=== PATIENT | female | born 2000 | race Caucasian/White ===

== ENCOUNTER 2022-03-04 10:17 | Emergency (ER) | payer OTHER, SELFPAY ==
[2022-03-04 10:39] VITALS: BP 110/64; PULSE 83; RESP 18; TEMP 36.6; O2SAT 98
--- NOTE | 2022-03-04 10:41 | ED.GENADULT ---
HPI - General Adult General Chief complaint: Upper Respiratory Infection Stated complaint: sorethroat History of Present Illness HPI narrative: 21-year-old female. Presents to [facility] this morning with acute complaints of sore throat, body aches, chills, diarrhea. Manifestations present for the past 24 hours. She reports a positive streptococcal sore throat exposure at home. No fever. No dysphagia, involuntary drooling. Nasal congestion, w/o cough, dyspnea, palpitations, chest pain. Infrequent bouts of loose stool, without abdominal pain, urinary concerns, bloody stool. No additional acute c/o upon PE. Related Data Allergies Allergy/AdvReac Type Severity Reaction Status Date / Time amoxicillin Allergy Unknown Rash Verified 03/04/22 10:43 Review of Systems Review of Systems: ROS: Positive for nasal congestion. Positive for sore throat. Positive for body aches. Positive for loose stool. No headache dizziness. No dyspnea dysphagia. No abdominal pain, nausea, vomiting, or bloody stool. Remainder of ROS is negative unless otherwise noted. Eyes: Comments: teo. Exam Narrative: GENERAL: This is a well-nourished, well-developed adult, in no apparent distress. HEAD: normocephalic, atraumatic. EYES: PERRL. Sclera clear/white. EARS: External ears normal, auditory canals clear and without drainage, TMs normal. NOSE: External nose normal. Positive Rhinorrhea, no obstruction, nares patent. THROAT: Mucous membranes moist, posterior pharynx is erythematous, mild exudative changes. No swelling, palate soft. NECK: Neck supple, non-tender without lymphadenopathy, masses or thyromegaly. No meningeal findings. CARDIOVASCULAR: Regular rate and rhythm without murmurs, gallops, or rubs. RESPIRATORY: Clear to auscultation. Breath sounds equal bilaterally. No wheezes, rales, or rhonchi. GASTROINTESTINAL: Abdomen soft, non-tender. SKIN: warm, intact with no suspicious lesions or rash. NEURO: Alert, active, and age appropriate. No focal neurologic deficits. EXTREMITIES: Negative. Course Course Emergency Course: Level of Care: Express Care Visit Vital Signs Vital signs: Vital Signs Temperature 36.6 C 03/04/22 10:39 Pulse Rate 83 03/04/22 10:39 Respiratory Rate 18 03/04/22 10:39 Blood Pressure 110/64 03/04/22 10:39 Pulse Oximetry 98 03/04/22 10:39 Oxygen Delivery Room Air 03/04/22 10:39 Temperature 36.6 C 03/04/22 10:39 Pulse Rate 83 03/04/22 10:39 Respiratory Rate 18 03/04/22 10:39 Blood Pressure 110/64 03/04/22 10:39 Pulse Oximetry 98 03/04/22 10:39 Oxygen Delivery Room Air 03/04/22 10:39 Medical Decision Making MDM Narrative Medical decision making narrative: Afebrile, non-tachycardic, appears non-toxic. No hypoxemia, no respiratory distress. SARS Covid: negative. Rapid Strep:negative. Considering PE findings, in addition to recent streptococcal sore throat exposure, will cover this client with the Z-pack (PCN allergy). Resume home OTC remedies prn. PCP F/U 1 WK. ER W/Emergent status changes. Pt agrees. Differential Diagnosis Differential Diagnosis: Differential diagnosis: consideration of the following conditions may be warranted for the presenting problem, they are not final diagnoses: Upper respiratory infection, pharyngitis, streptococcal sore throat, sinusitis, otitis media, Sars Covid, and or other. Vital Signs Vital Signs: Vital Signs Temperature 36.6 C 03/04/22 10:39 Pulse Rate 83 03/04/22 10:39 Respiratory Rate 18 03/04/22 10:39 Blood Pressure 110/64 03/04/22 10:39 Pulse Oximetry 98 03/04/22 10:39 Oxygen Delivery Room Air 03/04/22 10:39 Temperature 36.6 C 03/04/22 10:39 Pulse Rate 83 03/04/22 10:39 Respiratory Rate 18 03/04/22 10:39 Blood Pressure 110/64 03/04/22 10:39 Pulse Oximetry 98 03/04/22 10:39 Oxygen Delivery Room Air 03/04/22 10:39 Lab [facility]
== END 2022-03-04 11:02 | disposition home or self-care (01) ==
PROVIDERS: Emergency Provider Nurse Practitioner Adult Health
DX: J02.9 Acute pharyngitis, unspecified (principal); Z20.822 Contact with and (suspected) exposure to COVID-19
CPT/HCPCS: 87081; 87426; 87880; 99213; C9803; G0463

== ENCOUNTER 2022-08-13 16:24 | Emergency (ER) | payer OTHER, SELFPAY ==
[2022-08-13 16:32] VITALS: BP 115/65; PULSE 88; RESP 16; TEMP 36.7; O2SAT 98
[2022-08-13 16:36] VITALS: BP 115/65; PULSE 88; RESP 16; TEMP 36.7; O2SAT 98
--- NOTE | 2022-08-13 16:37 | ED.URI ---
HPI - URI/Sore Throat General Chief Complaint: Upper Respiratory Infection Stated Complaint: sorethroat,bilateral ear pain Time Seen by Provider: 08/13/22 16:37 Source: patient Mode of arrival: ambulatory Limitations: no limitations History of Present Illness HPI Narrative: 22-year-old female presents with complaint of sore throat, bilateral ear pain, postnasal drainage and nasal congestion for 2 days. Afebrile. No cough. Is not taking any [id number] medications to treat her symptoms. 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 Denies nausea vomiting diarrhea. All systems reviewed and negative except as noted above. Related Data Allergies Allergy/AdvReac Type Severity Reaction Status Date / Time amoxicillin Allergy Unknown Rash Verified 08/13/22 16:35 Review of Systems Review of Systems: CONSTITUTIONAL: Denies fever, chills, or sweats. EYES: Denies visual changes, redness, or discharge. ENT: Reports rhinorrhea, congestion, sore throat, bilateral ear pain CARDIOVASCULAR: Denies chest pain, palpitations, or edema. RESPIRATORY: Denies cough or dyspnea. GASTROINTESTINAL: Denies abdominal pain, nausea, vomiting, or diarrhea. GENITOURINARY: Denies dysuria or hematuria. SKIN: Denies rash or itching. MUSCULOSKELETAL: Denies back pain, joint pain, or myalgia. NEUROLOGIC: Denies headache, numbness, or weakness. PSYCHIATRIC: Denies anxiety or depression. All other systems reviewed are negative, except as documented in HPI. PMFSH Comments At time of signature, agree with nursing past medical, surgical, social and family history. There is no relevant family history pertinent to the presenting complaint. Exam Narrative: GENERAL: This is a well-nourished, well-developed patient, in no apparent distress. HEAD: normocephalic, atraumatic. EYES: PERRL. Sclera clear/white. Vision is grossly intact. EARS: External ears normal, auditory canals clear and without drainage, TMs normal without perforation. Hearing grossly intact. NOSE: External nose normal with clear nasal drainage, no erythema or swelling. no sinus tenderness. THROAT: Mucous membranes moist, Moderate amount clear Postnasal drainage. NECK: Neck supple, non-tender without lymphadenopathy, masses or thyromegaly. CARDIOVASCULAR: Regular rate and rhythm without murmurs, gallops, or rubs. RESPIRATORY: Clear to auscultation. Breath sounds equal bilaterally. No wheezes, rales, or rhonchi. SKIN: warm, Dry, intact with no suspicious lesions or rash, good texture and turgor. NEURO: awake, alert, and oriented to person, place and time. There were no obvious focal neurologic abnormalities. EXTREMITIES: No joint tenderness, effusion, or edema noted. Course Course Level of Care: Express Care Visit Vital Signs Vital signs: Vital Signs Temperature 36.7 C 08/13/22 16:32 Pulse Rate 88 08/13/22 16:32 Respiratory Rate 16 08/13/22 16:32 Blood Pressure 115/65 08/13/22 16:32 Pulse Oximetry 98 08/13/22 16:32 Oxygen Delivery Room Air 08/13/22 16:32 Temperature 36.7 C 08/13/22 16:36 Pulse Rate 88 08/13/22 16:36 Respiratory Rate 16 08/13/22 16:36 Blood Pressure 115/65 08/13/22 16:36 Pulse Oximetry 98 08/13/22 16:36 Oxygen Delivery Room Air 08/13/22 16:36 Reviewed MDM - URI/Sore Throat MDM Narrative Medical decision making narrative: Patient is aware of diagnosis, understands and agrees to treatment plan. Anticipatory guidance given. Patient agrees to follow-up as directed and is aware of reasons to seek care at the emergency department. Portions of this record may have been created with voice recognition software Differential Diagnosis Differential diagnosis: Likely sinusitis Lab Data Labs: Lab Results 08/13/22 Range/Units 16:39 POC SARS CoV-2 Ag Negative (Negative) Strep Screen Presumptive Negative
== END 2022-08-13 17:23 | disposition home or self-care (01) ==
PROVIDERS: Emergency Provider Nurse Practitioner Family; PCP Pediatrics
DX: J01.90 Acute sinusitis, unspecified (principal); Z20.822 Contact with and (suspected) exposure to COVID-19
CPT/HCPCS: 87081; 87426; 87880; 99213; C9803; G0463

== ENCOUNTER 2023-03-17 08:35 | Emergency (ER) | payer OTHER, SELFPAY ==
[2023-03-17 08:51] VITALS: BP 106/59; PULSE 79; RESP 18; TEMP 36.5; O2SAT 99
--- NOTE | 2023-03-17 09:22 | ED.URI ---
HPI - URI/Sore Throat General Chief Complaint: Upper Respiratory Infection Stated Complaint: sorethroat Time Seen by Provider: 03/17/23 08:55 Source: patient Mode of arrival: ambulatory Limitations: no limitations History of Present Illness HPI Narrative: Denae is a 22-year-old female patient presenting to the clinic today with complaints of a sore throat x2 days. She reports she has also had some slight nasal congestion and nonproductive cough. No known fever or chills. No known exposure to anyone with COVID, flu, or strep. MD elicited complaint: sore throat and nasal congestion Related Data Home Medications Medication Instructions Recorded Confirmed No Home Medications 03/17/23 03/17/23 Allergies Allergy/AdvReac Type Severity Reaction Status Date / Time amoxicillin AdvReac Mild Rash Verified 03/17/23 09:04 Review of Systems Review of Systems: Pertinent positives per HPI. Patient denies any fever, chills, rash, headache, visual changes, dizziness, shortness of breath, chest pain, palpitations, nausea, vomiting, diarrhea, constipation, abdominal pain, or any urinary issues. PMFSH Comments At the time of my signature, I reviewed and agree with the nursing past medical, surgical, social, and family history. There is no relevant family history pertinent to the patient complaint. Exam Narrative: General: Well-developed, well nourished, in no apparent distress Head: Normocephalic, atraumatic Eyes: Pupils equally round and reactive to light bilaterally, EOM intact, sclera and conjunctive clear, no discharge, lids normal Ears: TMs intact and congested, ear canals clear, no drainage, grossly hearing normal. Nose: Nares patent, clear nasal discharge, no inflammation, no sinus tenderness. Mouth: Oral pharynx red without lesions or masses, good dentition, MMM. Neck: Supple, trachea midline, no enlargement of anterior or posterior cervical nodes, no thyroid masses or goiter palpable. Cardio: Regular rate and rhythm, s1 and s2 normal, no murmur appreciated. Resp: Clear to auscultation bilaterally, no rhonchi, rales, wheezing or rubs Course Course Emergency Course: Portions of this record may have been created with voice recognition software. Level of Care: Express Care Visit Vital Signs Vital signs: Vital Signs Temperature 36.5 C 03/17/23 08:51 Pulse Rate 79 03/17/23 08:51 Respiratory Rate 18 03/17/23 08:51 Blood Pressure 106/59 L 03/17/23 08:51 Pulse Oximetry 99 03/17/23 08:51 Oxygen Delivery Room Air 03/17/23 08:51 Temperature 36.5 C 03/17/23 08:51 Pulse Rate 79 03/17/23 08:51 Respiratory Rate 18 03/17/23 08:51 Blood Pressure 106/59 L 03/17/23 08:51 Pulse Oximetry 99 03/17/23 08:51 Oxygen Delivery Room Air 03/17/23 08:51 Vital signs reviewed MDM - URI/Sore Throat MDM Narrative Medical decision making narrative: At the time of visit patient is resting comfortably on the exam table. Strep screen was obtained was negative. We will send for culture. I suspect patient has URI/pharyngitis. Supportive measures were discussed with the patient she voiced understanding discharge instructions agrees to treatment plan. Differential Diagnosis Differential diagnosis: Likely upper respiratory infection, otitis media, sinusitis, viral infection, bronchitis, influenza, pharyngitis and other (COVID) Lab Data Labs: Strep Screen Presumptive Negative *(Reference Range: Negative)* Discharge Plan Discharge Clinical Impression: Upper respiratory infection, Pharyngitis Patient Disposition: Home, Self-Care Condition: Stable Instructions: Antibiotic Form, Pharyngitis (ED), Upper Respiratory Infection (ED) Additional Instructions: Strep test was negative in the clinic today. We will send for culture if this comes back positive we will contact him place you on antibiotics at that time Homero
== END 2023-03-17 09:25 | disposition home or self-care (01) ==
PROVIDERS: Emergency Provider Nurse Practitioner Family
DX: J06.9 Acute upper respiratory infection, unspecified (principal); J02.9 Acute pharyngitis, unspecified
CPT/HCPCS: 87081; 87880; 99213; G0463

== ENCOUNTER 2023-09-29 09:54 | Emergency (ER) | payer OTHER, SELFPAY ==
--- NOTE | 2023-09-29 10:00 | ED.URI ---
HPI - URI/Sore Throat General Chief Complaint: Upper Respiratory Infection Stated Complaint: Sore Throat Time Seen by Provider: 09/29/23 10:02 Source: patient Mode of arrival: ambulatory Limitations: no limitations History of Present Illness HPI Narrative: Denae is a 23-year-old female patient presenting to the clinic today with complaints of a sore throat, cough, and congestion that started last night. She reports she woke up around 1:00 a.m. this morning and her throat was very sore. Rating her pain a 7/10 currently. Has taken some nighttime cold medicine. Reports she also has an upset stomach, vomited once, and had 1 episode of diarrhea. Denies any fever or body aches. MD elicited complaint: sore throat and nasal congestion Related Data Home Medications Medication Instructions Recorded Confirmed No Home Medications 03/17/23 09/29/23 Allergies Allergy/AdvReac Type Severity Reaction Status Date / Time amoxicillin AdvReac Mild Rash Verified 09/29/23 10:09 Review of Systems Review of Systems: Pertinent positives per HPI. Patient denies any fever, rash, headache, visual changes, dizziness, shortness of breath, chest pain, palpitations, nausea, vomiting, diarrhea, constipation, abdominal pain, or any urinary issues. PMFSH Comments At the time of my signature, I reviewed and agree with the nursing past medical, surgical, social, and family history. There is no relevant family history pertinent to the patient complaint. Exam Narrative: General: Well-developed, well nourished, in no apparent distress Head: Normocephalic, atraumatic Eyes: Pupils equally round and reactive to light bilaterally, EOM intact, sclera and conjunctive clear, no discharge, lids normal Ears: TMs intact and clear, ear canals clear, no drainage, grossly hearing normal. Nose: Nares patent, clear discharge, no inflammation, no sinus tenderness. Mouth: Oral pharynx mildly red without lesions or masses, good dentition, MMM. Neck: Supple, trachea midline, no enlargement of anterior or posterior cervical nodes, no thyroid masses or goiter palpable. Cardio: Regular rate and rhythm, s1 and s2 normal, no murmur appreciated. Resp: Clear to auscultation bilaterally, no rhonchi, rales, wheezing or rubs Course Course Emergency Course: Portions of this record may have been created with voice recognition software. Level of Care: Express Care Visit Vital Signs Vital signs: Vital signs reviewed MDM - URI/Sore Throat MDM Narrative Medical decision making narrative: At the time of visit patient is resting comfortably on the exam table. Patient appears to be nontoxic. Labs: Strep test was performed and negative in the clinic today. Plan: I suspect patient has URI/pharyngitis/viral syndrome. We will send strep for culture. Supportive measures were discussed with the patient and they voiced understanding discharge instructions and agrees to treatment plan. Return precautions reviewed Differential Diagnosis Differential diagnosis: Likely upper respiratory infection, otitis media, sinusitis, viral infection, bronchitis, influenza, pharyngitis and other (COVID) Discharge Plan Discharge Clinical Impression: Viral infection Upper respiratory infection Qualifiers: URI type: unspecified URI Qualified Code(s): J06.9 - Acute upper respiratory infection, unspecified Pharyngitis Qualifiers: Pharyngitis/tonsillitis etiology: unspecified etiology Qualified Code(s): J02.9 - Acute pharyngitis, unspecified Patient Disposition: Home, Self-Care Condition: Stable Instructions: Antibiotic Form, Pharyngitis (ED), Upper Respiratory Infection (ED), Viral Syndrome (ED) Additional Instructions: Strep test was negative in the clinic today. We will send for culture and if this comes back positive we will contact you in place you on antibiotics at that time. Increase fluids and stay well hydrated Tylenol/motrin for pain/fever Flonas
[2023-09-29 10:12] VITALS: BP 105/64; PULSE 75; RESP 16; TEMP 36.3; O2SAT 100
== END 2023-09-29 10:22 | disposition home or self-care (01) ==
PROVIDERS: Emergency Provider Nurse Practitioner Family
DX: B34.9 Viral infection, unspecified (principal); J06.9 Acute upper respiratory infection, unspecified; J02.9 Acute pharyngitis, unspecified
CPT/HCPCS: 87081; 87880; 99213; G0463

== ENCOUNTER 2024-03-03 13:20 | Emergency (ER) | payer OTHER, SELFPAY ==
[2024-03-03 13:30] VITALS: BP 97/81; PULSE 80; RESP 18; TEMP 36.7; O2SAT 100
--- NOTE | 2024-03-03 13:37 | ED.WOUNDLAC ---
HPI - Wound/Laceration General Chief Complaint: Wound/Laceration Stated Complaint: boil on inner thigh Time Seen by Provider: 03/03/24 13:37 Source: patient, RN notes reviewed and old records reviewed Mode of arrival: ambulatory Limitations: no limitations History of Present Illness HPI narrative: patient presents with complaints of pustule to right inner thigh. She reports that she occasionally gets them, always needs antibiotics rhythm to resolve. States that she is typically treated for these by her OBGYN who advised her that they are likely caused by wearing her clothing too tightly. She states that this time her OBGYN would not treat her and told her to come to [facility]. Patient states that she noticed pustule 2 days ago, states it is increasing in size. Denies any active drainage. Denies any fever, chills, sweats. For his knee injury or trauma. Voices no other concerns or complaints today. Related Data Allergies Allergy/AdvReac Type Severity Reaction Status Date / Time amoxicillin AdvReac Mild Rash Verified 03/03/24 13:41 Review of Systems Review of Systems: All systems reviewed & are unremarkable except as noted in HPI and below Constitutional: Constitutional: Reports no additional constitutional complaints ENT: Reports system reviewed and no additional complaints, except as documented Cardiovascular: Cardiovascular: Reports no additional cardiovascular complaints Respiratory: Respiratory: Reports no additional respiratory complaints Gastrointestinal: Gastrointestinal: Reports no additional gastrointestinal complaints Integumentary/Breasts: Skin/Breast: Reports as per HPI and Reports other ( Pustule) [facility] Comments At the time of my signature, I reviewed and agree with the nursing past medical, surgical, social, and family history. There is no relevant family history pertinent to the patient complaint. Exam Const: General: cooperative, no acute distress, alert and awake Orientation/consciousness: oriented to person, oriented to place and oriented to time HENMT: Head: normal to inspection Resp: Effort & Inspection: normal respiratory effort and able to speak in complete sentences Auscultation: clear to auscultation bilaterally, no crackles, no rales, no rhonchi and no wheezes Cardio: Palpation: normal PMI Rate: regular rate Rhythm: regular rhythm Heart sounds: S1 normal heart sound present and S2 normal heart sound present Skin: Full body images: 1. 1 cm pustule, mildly indurated Neuro: General: oriented to person, oriented to place and oriented to time Cranial nerves: Yes CN's II-XII intact bilaterally Psych: Appearance: grossly normal Thought process: Normal thought process present Insight: Good insight present (Psych) Judgement: Good judgement present (Psych) Course Course Level of Care: Express Care Visit Vital Signs Vital signs: Vital Signs Temperature 98.1 F 03/03/24 13:30 Pulse Rate 80 03/03/24 13:30 Respiratory Rate 18 03/03/24 13:30 Blood Pressure 97/81 L 03/03/24 13:30 Pulse Oximetry 100 03/03/24 13:30 Oxygen Delivery Room Air 03/03/24 13:30 Temperature 98.1 F 03/03/24 13:30 Pulse Rate 80 03/03/24 13:30 Respiratory Rate 18 03/03/24 13:30 Blood Pressure 97/81 L 03/03/24 13:30 Pulse Oximetry 100 03/03/24 13:30 Oxygen Delivery Room Air 03/03/24 13:30 Reviewed MDM - Wound/Laceration MDM Narrative Medical decision making narrative: patient with small pustule, mild induration to right inner thigh. Not amenable to I and D. nontoxic appearing, stable for discharge home on p.o. antibiotics. Seven days Augmentin. Follow up primary care provider. Emergency department for new or worse symptoms. Discharge instructions reviewed with patient, as well as provided in writing per nursing staff. The instructions also include specific and strict return/GO TO THE ER as well as f/u information. All questions have been answered, and
== END 2024-03-03 13:51 | disposition home or self-care (01) ==
PROVIDERS: Emergency Provider Nurse Practitioner Family
DX: L02.415 Cutaneous abscess of right lower limb (principal)
CPT/HCPCS: 99213; G0463

== ENCOUNTER 2024-05-23 16:53 | Emergency (ER) | payer OTHER, SELFPAY ==
--- NOTE | 2024-05-23 17:02 | ED.URI ---
HPI - URI/Sore Throat General Chief Complaint: Upper Respiratory Infection Stated Complaint: throat itching and headache Time Seen by Provider: 05/23/24 17:02 Source: patient Mode of arrival: ambulatory Limitations: no limitations History of Present Illness HPI Narrative: Denae is a 24-year-old female patient presenting to the clinic today with complaints of sore throat, headache, nausea, vomiting, and diarrhea. She reports symptoms just started this morning. Denies any known fever, chills, or body aches. Denies any chest pain or shortness of breath. Just fininished her menses this week- no concern for . MD elicited complaint: sore throat and nasal congestion Related Data Home Medications ?Medication ?Instructions ?Recorded ?Confirmed ?Last Taken ?Type No Home Medications 05/23/24 05/23/24 Unknown History Allergies Allergy/AdvReac Type Severity Reaction Status Date / Time amoxicillin AdvReac Mild Rash Verified 03/03/24 13:41 Review of Systems Review of Systems: Pertinent positives per HPI. Patient denies any fever, chills, rash, visual changes, dizziness, cough, shortness of breath, chest pain, palpitations, constipation, abdominal pain, or any urinary issues. PMFSH Comments At the time of my signature, I reviewed and agree with the nursing past medical, surgical, social, and family history. There is no relevant family history pertinent to the patient complaint. Exam Narrative: General: Well-developed, obese, in no apparent distress Head: Normocephalic, atraumatic Eyes: Pupils equally round and reactive to light bilaterally, EOM intact, sclera and conjunctive clear, no discharge, lids normal Ears: TMs intact and clear, ear canals clear, no drainage, grossly hearing normal. Nose: Nares patent, clear nasal discharge, no inflammation, no sinus tenderness. Mouth: Oral pharynx mildly red without lesions or masses, good dentition, MMM. Neck: Supple, trachea midline, no enlargement of anterior or posterior cervical nodes, no thyroid masses or goiter palpable. Cardio: Regular rate and rhythm, s1 and s2 normal, no murmur appreciated. Resp: Clear to auscultation bilaterally, no rhonchi, rales, wheezing or rubs Abdomen: Soft, pliable, bowel sounds present in all quadrants, non-tender to palpation, no organomegly, no CVAT tenderness. Course Course Emergency Course: Portions of this record may have been created with voice recognition software. Level of Care: Express Care Visit Vital Signs Vital signs: Vital Signs Temperature 36.7 C 05/23/24 17:12 Pulse Rate 114 H 05/23/24 17:12 Respiratory Rate 18 05/23/24 17:12 Blood Pressure 133/64 05/23/24 17:12 Pulse Oximetry 99 05/23/24 17:12 Oxygen Delivery Room Air 05/23/24 17:12 Temperature 36.7 C 05/23/24 17:12 Pulse Rate 114 H 05/23/24 17:12 Respiratory Rate 18 05/23/24 17:12 Blood Pressure 133/64 05/23/24 17:12 Pulse Oximetry 99 05/23/24 17:12 Oxygen Delivery Room Air 05/23/24 17:12 Vital signs reviewed MDM - URI/Sore Throat MDM Narrative Medical decision making narrative: At the time of visit patient is resting comfortably on the exam table. Patient appears to be nontoxic. Labs: COVID, influenza, and strep test were performed. All testing was negative in the clinic today. We will send strep for culture. Plan: I suspect patient has URI/gastroenteritis. Prescription for Zofran was sent for nausea. Supportive measures were discussed with the patient and they voiced understanding discharge instructions and agrees to treatment plan. Return precautions reviewed Differential Diagnosis Differential diagnosis: Likely upper respiratory infection, otitis media, sinusitis, viral infection, bronchitis, influenza, pharyngitis and other (COVID) Discharge Plan Discharge Clinical Impression: Gastroenteritis Upper respiratory infection Qualifiers: URI type: unspecified URI Qualified Code(s): J06.9 - Acute upper respiratory infection, unspecified Pharyngitis Qualifiers: Pharyngitis/tonsillitis etiology: unspecified etiology Qualified Code(s): J02.9 - Acute pharyngitis, unspecified Patient Disposition: Home, Self-Care Condition: Stable Instructions: Antibiotic Form, Pharyngitis (ED), Upper Respiratory Infection (ED), Gastroenteritis (ED) Additional Instructions: COVID, influenza, and strep test were negative in the clinic today. We will send strep for culture if this comes back positive we will contact him place you on antibiotics at that time. Take prescription medications only as prescribed-ondansetron for nausea Increase fluids and stay well hydrated Tylenol/motrin for pain/fever Flonase and OTC antihistamines as directed Vicks vapor rub to open sinuses Sinus rinses for congestion Cepacol spray, cough drops, throat lozenges, warm tea with honey/lemon, gargle salt water to soothe throat BRAT diet for diarrhea Clear liquids x 24 hours then advance as tolerated for nausea/vomiting Go to the ED if you develop a worsening in your condition- high fever not controlled by Tylenol or Motrin, dehydration, weakness, lethargy, shortness of breath, or chest pain. Follow up with your PCP in 3-5 days if symptoms persist. Patient Language: Estonian Prescriptions: No Action No Home Medications Follow-up/Referrals: PHYSICIAN,CUT OUT MARKER [Primary Care Provider] - Time of Disposition: 17:37 Quality NIHSS Nursing Documentation ED NIHSS nursing documentation: reviewed/agree
[2024-05-23 17:12] VITALS: BP 133/64; PULSE 114; RESP 18; TEMP 36.7; O2SAT 99
[2024-05-23 17:35] LABS: EDSTREPNEGPOS1 Negative (Negative)
[2024-05-23 17:45] LABS: EDCOVIDSCREEN Negative (Negative); EDINFLUASCREEN Negative (Negative); EDINFLUBSCREEN Negative (Negative)
== END 2024-05-23 17:45 | disposition home or self-care (01) ==
PROVIDERS: Emergency Provider Nurse Practitioner Family; Referring Provider Emergency Medicine
DX: K52.9 Noninfective gastroenteritis and colitis, unspecified (principal); J06.9 Acute upper respiratory infection, unspecified; J02.9 Acute pharyngitis, unspecified; Z20.822 Contact with and (suspected) exposure to COVID-19
CPT/HCPCS: 87081; 87426; 87804; 87880; 99213; G0463